=== PATIENT | male | born 1955 | race Caucasian/White ===

== ENCOUNTER → 2016-09-17 | Outpatient (CLI) | payer BC ==
[~2016-09-17] MED LIST: ALEVE220 M1 PO; ASPIRIN ENTERI325 M1 PO; CARVEDILOL12.5 MG PO; FENOFIBRATE160 MG PO; FISH OIL 1,2001 EAC2 PO; FLEXERIL10 MG PO; FUROSEMIDE40 MG PO; GLIMEPIRIDE2 MG PO; GLUCOSAMINE &1 EAC1 PO; GNP TRIPLE OME1 EACH PO; HCTZ PO; HYDROCODON-ACE1 EAC5 PO; LOTREL 5/20 MG1 CAP PO; METFORMIN HCL500 M1 PO; PRAVACHOL PO; VASCEPA1 GM PO; VITAMIN C1000 M1 PO; [UNRECOGNIZED DRUG - OTHER] PO
--- NOTE | ~2016-09-17 | CO ---
Unit #: [id number] #: [id number] Patient: CADEN ALEXANDER [id number] [address] [place], [place] [address] [id number] O MR#: [id number] NAME: CADEN ALEXANDER ROOM: Age: 60 Sex: M Admission Date: 09/17/2016 : 1955 Attending Physician: Rustam Franklin M.D. Primary Care Physician: Marco A Borrero M.D. Consultation Date: 09/17/2016 CONSULTATION REPORT REASON FOR CONSULTATION Preoperative medical evaluation prior to left total knee arthroplasty, scheduled by Dr. Franklin for September 29, 2016. HISTORY OF PRESENT ILLNESS The patient is a 60-year-old male, who presents to preprocedural screening for the reasons indicated above. He complains of left knee pain at the time of this interview. He denies upper chest, back, arm, neck, jaw pain or pressure. Denies shortness of air, dyspnea on exertion, PND, orthopnea. He does have sleep apnea and is compliant with CPAP. Denies lightheadedness, dizziness, presyncope, syncope. Denies palpitations. Denies history of myocardial infarction, congestive heart failure, CVA, TIA, insulin-dependent diabetes mellitus, and history of chronic kidney disease. He has been evaluated by Dr. Franklin and scheduled for the above referenced procedure. PAST MEDICAL HISTORY 1. Osteoarthritis. 2. Obstructive sleep apnea compliant with CPAP. 3. Morbid obesity, BMI 40. 4. ETOH use on a daily basis. He states he drinks one to two beers daily. 5. Type 2 diabetes mellitus, noninsulin dependent. 6. Hypertension. 7. Hyperlipidemia. 8. Left knee pain. 9. History of bilateral lower extremity edema. 10. History of pyorrhea without dental visit for more than one year. 11. Hard of hearing with bilateral hearing aide. PAST SURGICAL HISTORY 1. Right knee arthroscopy. 2. Patient denies a personal and family history of complications to anesthesia. SOCIAL HISTORY Denies tobacco use and illicit drug use. Consumes one to two beers daily. FAMILY HISTORY Per review of Dr. Franklin's office note: Hypertension, hyperlipidemia, stroke, and coronary artery disease. REVIEW OF SYSTEMS A 10-point review of systems is conducted and negative except as indicated Unit #: [id number] #: [id number] Patient: CADEN ALEXANDER under history of present illness above. ALLERGIES No known medication allergies. CURRENT MEDICATIONS 1. Lotrel 5/20 mg cap one p.o. b.i.d. 2. Pravachol 40 mg p.o. at bedtime. 3. Carvedilol 12.5 mg p.o. b.i.d. 4. Fenofibrate 160 mg p.o. at bedtime. 5. Glimepiride 2 mg p.o. daily. 6. Furosemide 40 mg p.o. daily. 7. Vascepa two tabs p.o. b.i.d. 8. Metformin HCl 500 mg p.o. b.i.d. 9. Fish oil 1200 mg soft gel one p.o. b.i.d. 10. Glucosamine chondroitin cap two p.o. b.i.d. PHYSICAL EXAMINATION GENERAL: A 60-year-old male, awake, alert. Ambulatory with limp, in no acute distress. VITAL SIGNS: Temperature 98.7, heart rate 71, respiratory rate 16, blood pressure 135/74, oxygen saturation 94% on room air. HEENT: Atraumatic, normocephalic. Sclerae anicteric. No discharge from eyes, ears, or nares. LUNGS: No preauricular, postauricular, tonsillar, submental, anterior, posterior, cervical, supra or infraclavicular adenopathy. ENDOCRINE: No thyromegaly, thyroid nodules or tenderness. RESPIRATORY: Clear to auscultation in all issa bilaterally without wheezes, rhonchi, or rales. CARDIOVASCULAR: S1, S2. Regular rate and rhythm without murmur or rub. GASTROINTESTINAL: Bowel sounds positive x4. Soft, nontender, nondistended. EXTREMITIES: No edema, cyanosis, or clubbing. Strength 5/5 all extremities bilaterally to flexion/extension. Nontender. No obvious muscle atrophy. NEUROLOGIC: Alert and oriented x3. Speech clear. Cranial nerves II-XII grossly intact. Follows directions for examination. DIAGNOSTIC STUDIES LABORATORY: WBC 6.6, hemoglobin 15.4, hematocrit 46.7, platelets 192,000. Hemoglobin A1c 7.4. Sodium 139, potassium 4.3, chloride 107, CO2 of 23, glucose 29, BUN 15, creatinine 0.9, calcium 9.4. AST 51, ALT 43, alkaline phosphatase 52, bilirubin total 0.4, total protein 7.4, albumin 4. PT 11.3, INR 1. Blood type O positive. Antibody screen negative. Urinalysis negative with neither microscopic nor culture indicated. MRSA nasal swab: Report pending at this time. IMAGING: Two view chest x-ray: Report pending at this time. CARDIOVASCULAR: A 12-lead EKG: Normal sinus rhythm. Minimal voltage criteria, maybe normal variant, borderline ECG. IMPRESSION The patient is a 60-year-old male who presents to preprocedural screening for: 1. Preoperative medical evaluation prior to left total knee arthroplasty. The patient's Ingram Revised Cardiac Risk Index is equal to 0.4%. This represents the patient's perioperative risk of Unit #: [id number] #: [id number] Patient: CADEN ALEXANDER fatal or nonfatal myocardial infarction, cardiopulmonary arrest, arrhythmia, and/or pulmonary edema. This has been discussed in detail with the patient and he wishes to proceed with surgery as scheduled at this time. 2. Obstructive sleep apnea: Compliant with CPAP. The patient will be placed on obstructive sleep apnea protocol postoperatively. He has also been advised to bring a CPAP from home for use postoperatively on home setting when asleep. 3. Morbid obesity: Body mass index 40. 4. ETOH use daily: Will monitor postoperatively for signs and symptoms of withdrawal. 5. Type 2 diabetes mellitus: Follow Accu-Cheks. CCD. Monitor resumption of oral intake postoperatively and resume home dose of glipizide once tolerating oral intake well. Will also add low-dose sliding scale insulin protocol. 6. Hypertension: Continue current medications and adjust accordingly. 7. Osteoarthritis. 8. Hyperlipidemia: At this point, plan is to continue current medications. 9. Left knee pain: Perioperative pain management per Dr. Franklin. 10. History of bilateral lower extremity edema: The patient has no edema today. Will monitor postoperatively. 11. History of pyorrhea: Patient has been advised he needs to obtain preoperative dental clearance. He is to call and schedule his own appointment and he has verbalized understanding of this information. Thank you for allowing us to participate in the care of this patient. Will gladly follow him for postop medical management pending preoperative dental clearance and order of Dr. Franklni. Dictated by... Odalys Hair A.P.R.N. for Regine Graff/daysi TD: 09/17/2016 13:47 JOB #: [id number] CONSULTATION REPORT Page 1 of 1 X Odalys Hair APRN X CONSULTATION REPORT
--- NOTE | ~2016-09-17 | CR63 ---
[facility] A Service of [facility] RADIOLOGY TEXT RESULTS PATIENT: CADEN ALEXANDER LOCATION: [facility] : 53 UNIT #: [id number] AGE: [address]: Rustam Franklin MD SEX: M ORDER DR: [id number] [facility] [address] [facility]. [place], [place] [address] [id number] O MR#: [id number] Acc #: [id number] NAME: CADEN ALEXANDER : 1955 SEX: M STUDY DATE/TIME: 09/17/2016 9:07 UNIT: [facility] ROOM: STUDY DESCRIPTION: CR Chest 2 View Attending Physician: Rustam Franklin M.D. Referring Physician: uRstam Franklin M.D. Ordering Physician: Rustam Franklin M.D. Primary Care Physician: Marco A Borrero M.D. MEDICAL IMAGING REPORT This report is preliminary unless electronic signature is present EXAM Chest, 09/17/2016, [facility]. HISTORY 60-year-old male patient; preop clearance total left knee replacement. Osteoarthritis left knee. History of diabetes, hypertension, and sleep apnea. COMPARISON Chest none. FINDINGS Two-view chest demonstrates cardiomegaly with left ventricular stress configuration. The vascular structures are preserved. Bilateral lungs are clear. Partial eventration, right hemidiaphragm. IMPRESSION Cardiomegaly with left ventricular stress configuration. No acute finding. No comparison study. Dictated by... Nick Spring M.D. THIS IS AN ELECTRONICALLY VERIFIED REPORT Nick Spring M.D. at 09/17/2016 1:56 PM KAREN/colt TD: 09/17/2016 13:44 JOB #: [id number] MEDICAL IMAGING REPORT [facility] A Service [facility] RADIOLOGY TEXT RESULTS PATIENT: CADEN ALEXANDER LOCATION: [facility] : 53 UNIT #: [id number] AGE: [address]: Rustam Franklin MD SEX: M ORDER DR: Page 1 of 1 COPY
--- NOTE | ~2016-09-17 | EKG ---
PATIENT: CADEN ALEXANDER UNIT #: [id number] Ventricular Rate: 62 BPM Atrial Rate: 62 BPM P-R Interval: 168 ms QRS Duration: 114 ms Q-T Interval: 432 ms QTC Calculation(Bezet): 438 ms P [place]: -5 degrees Calculated R [place]: 4 degrees Calculated T [place]: 6 degrees Diagnosis Line: Normal sinus rhythm Diagnosis Line: Minimal voltage criteria for LVH, may be normal Diagnosis Line: variant Diagnosis Line: Borderline ECG Diagnosis Line: No previous ECGs available Diagnosis Line: Confirmed by MAC RUBIN MD ([id number]) on Diagnosis Line: 09/17/2016 8:23:39 AM INTERPRETING MD: SCOTTIE BRAVO
[2016-09-17 08:45] LABS: HEMATOCRIT 46.7 % (38.0-50.0); HEMOGLOBIN 15.4 gm/dL (13.0-16.0); MEAN CELL VOLUME 88.2 FL (83-96); MEAN CORPUSCULAR HEMOGLOBIN 29.1 PG (28-34); MEAN PLATELET VOLUME 9.2 FL (6.5-11.5); RED BLOOD COUNT 5.29 X10e (3.90-5.60); RED CELL DISTRIBUTION WIDTH 13.7 % (11.0-15.5); WHITE BLOOD COUNT 6.6 X10e3 (4.0-10.5)
[2016-09-17 08:46] LABS: URINE APPEARANCE CLEAR; URINE BILIRUBIN NEG (NEG); URINE BLOOD NEG (NEG); URINE COLOR YELLOW; URINE GLUCOSE NEG (NEG); URINE KETONE NEG (NEG); URINE LEUKOCYTE ESTERASE NEG (NEG); URINE NITRATE NEG (NEG); URINE PROTEIN NEG (NEG); URINE SPECIFIC GRAVITY 1.008 (1.003-1.035); URINE UROBILINOGEN 0.2 MG/DL (NEG)
[2016-09-17 08:47] LABS: URINE SOURCE CLEAN CATCH
[2016-09-17 09:00] LABS: PROTHROMBIN TIME (PATIENT) 11.3 SECONDS (10.0-11.7)
[2016-09-17 09:07] LABS: BILIRUBIN,TOTAL 0.4 mg/dL (0.2-2.0); BUN/CREATININE RATIO 16.66; CALCIUM SERUM 9.4 mg/dL (8.4-10.2); CREATININE SERUM 0.9 mg/dL (0.6-1.4); GLOM FILT RATE Estimated 91.9 mL/min (>60); POTASSIUM 4.3 mmol/L (3.5-5.1); PROTEIN TOTAL SERUM 7.4 g/dL (6.0-8.3)
[2016-09-17 10:17] LABS: CULTURE INDICATED? NO
== END | disposition home or self-care (01) ==
LOC: CAMB 07:53 → EDSTATUS 08:00 → CAMB 08:00
PROVIDERS: Orthopaedic Surgery
DX: Z01.818 Encounter for other preprocedural examination (principal); M17.12 Unilateral primary osteoarthritis, left knee; I10 Essential (primary) hypertension; E11.9 Type 2 diabetes mellitus without complications; I51.7 Cardiomegaly
CPT/HCPCS: 36415; 71020; 80053; 81003; 83036; 85027; 85610; 86850; 86900; 86901; 87070; 93005

== ENCOUNTER 2016-09-29 06:11 | Inpatient (IN) | payer BC ==
[~2016-09-29] VITALS: Ht 176.5 cm; Wt 133.6 kg
--- NOTE | ~2016-09-29 | OR ---
Unit #: [id number] #: [id number] Patient: CADEN ALEXANDER [id number] [address] [place], [place] [address] [id number] I MR#: [id number] NAME: CADEN ALEXANDER ROOM: [facility] Date of Procedure: 09/29/2016 Admission Date: 09/29/2016 Surgeon: Rustam Franklin M.D. : 1955 Attending Physician: Rustam Franklin M.D. Primary Care Physician: Marco A Borrero M.D. OPERATIVE REPORT PREOPERATIVE DIAGNOSIS Primary localized osteoarthritis of the left knee. POSTOPERATIVE DIAGNOSIS Primary localized osteoarthritis of the left knee. PROCEDURE PERFORMED Left total knee. ASSISTANTS Norma and Matt. ANESTHESIA Adductor canal block plus general. ESTIMATED BLOOD LOSS 100 mL. INDICATIONS FOR PROCEDURE This is a 60-year-old with severe pain in the left knee. He has had pain for years. It has gotten progressively worse to the point now, where it limits his walking and standing. He comes to the hospital today for left total knee. He has failed injections and anti-inflammatories. DESCRIPTION OF PROCEDURE The patient was brought to the holding room, given 3 g of Ancef and an adductor canal block, brought back to the operating room and given a general anesthetic. Tourniquet placed around the left leg. Left leg was prepped and draped in a sterile fashion. Tourniquet inflated to 300. A straight anterior skin incision was made. The subcutaneous dissected away and a medial arthrotomy performed. Patella was slid to the side. Osteophytes were removed from the femur. An intramedullary guide was used and a 6-degree valgus cut was made on the distal femur. The femur was sized and found to be a size 5 for the DePuy PFC Sigma knee system. The anterior-posterior cutting block was applied. Rotation was checked in the knee. Anterior and posterior cuts were made along with the chamfer cuts. Proximal tibial cut was made using a 0-degree cutting block. It was sized and found to be a 4. After this was done, any posterior condylar osteophytes were removed. Any remaining meniscal fragments were debrided. The posterior capsule and periosteum were injected with a ropivacaine mixture. After this was done, the patient then had the trial femur applied. Drill holes were made for lugs on the femoral component. The Unit #: [id number] #: [id number] Patient: CADEN ALEXANDER trial tibia was applied first with an 8 insert. The knee was stable medially, but it was opened laterally indicating a tight medial collateral ligament, so using 1/2-inch curved osteotome, we released this subperiosteally and then we went to a 10 insert and the knee came to full extension. It was stable in extension and flexion. The patella was grasped with 2 towel clips after the external alignment guide showed appropriate alignment of the limb. The patella measured 40 mm thick, was cut smooth at 19 and a 41 patella was the appropriate size. The 3 drill holes were made. Trial patella applied and it tracked properly. We then removed all the trials and used the drill and punch for the tibial tray. The knee was irrigated and dried while the cement was mixed and then all 3 components were cemented simultaneously. Once again, it was a size 5 femur cruciate retaining, size 4 tibia, and a 41 patella from the DePuy PFC Sigma knee system. Any excess cement was removed and after the cement was hardened, it was judged that the 10 insert was the appropriate thickness, so this was opened and applied to the tibial tray. The tourniquet was released. Hemostasis was obtained. The wound was irrigated with a dilute Betadine solution and bacitracin and subsequently closed using 0 Ethibond in the arthrotomy, 0 and 2-0 Vicryl in the subcutaneous. The skin was closed with a Dermabond type dressing. Sterile dressing applied and the general anesthetic reversed. therapeutic recreation assistant, Adelfo Green, was present throughout the entire case. Dictated by... Regine Hardy/janae TD: 09/29/2016 14:44 JOB #: [id number] OPERATIVE REPORT Page 1 of 1 X Rustam Franklin MD PROCEDURE OPERATIVE NOTE
--- NOTE | ~2016-09-29 | BMI ---
[facility] Nutrition Therapy DATE: 09/30/16 Patient: CADEN ALEXANDER Physician: DAVID Address: [address] [facility] Room/Bed: [address] [place] [address], Zip: [place] [address] Admit Date: 09/29/16 Date of : [birth year] Height: 5 9.5 Weight: 294 133.6 HIGH BMI NOTE: DX: 60 Y.O. MALE ADMITTED FOR OSTEOARTHRITIS (L) KNEE ANTHROPOMETRICS: 5'9.5", WT: 294# (134 KG), BMI: 42.8 DIET: CC RECOMMENDATIONS: 1. RECOMMEND TO ADD HEART HEALTHY TO CURRENT DIET ORDER ABOVE TO PROMOTE GRADUAL WEIGHT LOSS TOWARDS HEALTHY BMI (19.0-25.0) OR +/-10%IBW RD WILL F/U PER PROTOCOL Respectfully, MARANDA DE LUNA MS, RD, LD Food and Nutritional Services [facility] cc: client file
--- NOTE | ~2016-09-29 | EKG ---
PATIENT: CADEN ALEXANDER UNIT #: [id number] Ventricular Rate: 53 BPM Atrial Rate: 53 BPM P-R Interval: 158 ms QRS Duration: 114 ms Q-T Interval: 458 ms QTC Calculation(Bezet): 429 ms P [place]: 0 degrees Calculated R Huson: 3 degrees Calculated T Huson: 9 degrees Diagnosis Line: Sinus bradycardia Diagnosis Line: Minimal voltage criteria for LVH, may be normal Diagnosis Line: variant Diagnosis Line: Abnormal ECG Diagnosis Line: When compared with ECG of 17-SEP-2016 08:06, Diagnosis Line: No significant change was found Diagnosis Line: Confirmed by BINA MAXWELL MD ([id number]) on Diagnosis Line: 09/30/2016 3:46:21 PM INTERPRETING MD: PAYAL
--- NOTE | ~2016-09-29 | CO ---
Unit #: [id number] #: [id number] Patient: CADEN ALEXANDER [id number] [address] [place], [place] [address] [id number] I MR#: [id number] NAME: CADEN ALEXANDER. ROOM: [facility] Age: 60 Sex: M Admission Date: 09/29/2016 : 1955 Attending Physician: Rustam Franklin M.D. Primary Care Physician: Marco A Borrero M.D. Consultation Date: 09/30/2016 CONSULTATION REPORT REASON FOR CONSULTATION Sinus bradycardia. HISTORY OF PRESENT ILLNESS The patient is a 60-year-old man who does not have a icd 9 coder. He denies ever having a history of a myocardial infarction, 2D echocardiogram, or cardiac catheterization. The patient reports that he has a past medical history of hypertension, hyperlipidemia, diabetes, osteoarthritis, obstructive sleep apnea with CPAP compliance, and alcohol use. The patient is a nonsmoker. Patient presented to [facility] for elective left total knee arthroplasty per Dr. Franklin on September 29, 2016. Patient tolerated the procedure. Postoperatively, patient was noted to be bradycardic with heart rates in the 40s and 50s. Reportedly, patient was asymptomatic. At this time, there is no lightheadedness, dizziness, presyncope, syncope, palpitations, chest pain, or shortness of air. Again, patient was postop from anesthesia. A dopamine drip was not started on the patient. Cardiology was consulted for sinus bradycardia. PAST MEDICAL HISTORY 1. Osteoarthritis, status post left total knee arthroplasty on September 29, 2016. 2. Hypertension. 3. Hyperlipidemia. 4. Diabetes. 5. Obstructive sleep apnea with CPAP compliance. 6. Alcohol use. 7. History of bilateral lower extremity edema. PAST SURGICAL HISTORY Right total knee arthroscopy. ALLERGIES No known allergies. HOME MEDICATIONS 1. Lotrel 5/20 one tab p.o. b.i.d. 2. Pravachol 40 mg p.o. at bedtime. 3. Carvedilol 12.5 mg p.o. b.i.d. 4. Fenofibrate 160 mg p.o. at bedtime. 5. Glimepiride 2 mg p.o. daily. 6. Lasix 40 mg p.o. daily. 7. Vascepa two tabs p.o. b.i.d. Unit #: [id number] #: [id number] Patient: CADEN ALEXANDER 8. Metformin 500 mg p.o. b.i.d. 9. Fish oil 1200 mg p.o. b.i.d. 10. Glucosamine one cap p.o. b.i.d. FAMILY HISTORY Patient endorses hypertension, hyperlipidemia, stroke, and coronary artery disease. SOCIAL HISTORY The patient denies tobacco and illicit drug use. He consumes one to two beers daily. REVIEW OF SYSTEMS A 10-point review of systems has been done and is considered otherwise negative unless indicated in the HPI. PHYSICAL EXAMINATION GENERAL: The patient is awake, alert in no acute distress. VITAL SIGNS: Temperature 99.2, heart rate 70, respirations 16, blood pressure 167/73. He is oxygenating 94%. HEENT: Head is atraumatic, normocephalic. Pupils equal, round, and reactive. Extraocular movements are intact. No drainage from ears or nares. NECK: Supple. Trachea is midline. Normal carotid upstrokes. CHEST: Lungs are clear to auscultation bilaterally. No wheezes, rales, or rhonchi. CARDIOVASCULAR: S1, S2. Regular rate and rhythm. No murmurs, rubs, or gallops appreciated. ABDOMEN: Soft, nontender, nondistended. Bowel sounds are positive in all four quadrants. SKIN: Appears to be warm, dry, intact without any unusual rashes or lesions. EXTREMITIES: No clubbing or cyanosis. The patient has edema in his left lower leg as well as the surgical incision. NEUROLOGIC: The patient is alert and oriented x4. He is pleasant and conversant. No focal deficits. DIAGNOSTIC STUDIES LABORATORY: Glucose 102, BUN 12, creatinine 0.7, sodium 135, potassium 3.9, chloride 106, CO2 of 24. Magnesium 1.7. White blood cells 9.3, hemoglobin 11.9, hematocrit 36.3, and platelets 267,000. ASSESSMENT 1. Asymptomatic bradycardia. 2. Hypertension. 3. Hyperlipidemia. 4. Diabetes. 5. Obstructive sleep apnea. 6. Status post left total knee arthroplasty on September 29, 2016. 7. Alcohol use. 8. Hard of hearing. 9. Nonsmoker. PLAN The patient had asymptomatic sinus bradycardia yesterday after surgery. There were no complaints of chest pain, shortness of air, palpitations, or dizziness. Dopamine was not started. Dr. Sanchez will see the patient and likely patient will be stable for discharge today. Unit #: [id number] #: [id number] Patient: CADEN ALEXANDER Dictated by... Mikayla Epps A.P.R.N. AM/daysi TD: 09/30/2016 10:04 JOB #: [id number] CONSULTATION REPORT Page 1 of 1 X Mikayla Epps APRN X CONSULTATION REPORT
--- NOTE | ~2016-09-29 | DS ---
Unit #: [id number] #: [id number] Patient: CADEN ALEXANDER [id number] [facility] [address]. [place], [place] [address] [id number] I MR#: [id number] NAME: CADEN ALEXANDER. ROOM: [facility] Age: 60 Sex: M Admission Date: 09/29/2016 : 1955 Discharge Date: 09/30/2016 Attending Physician: Rustam Franklin M.D. Primary Care Physician: Marco A Borrero M.D. DISCHARGE SUMMARY [facility]SULTED [facility] for medical management. REASON FOR ADMISSION Severe osteoarthritis, left knee. PROCEDURES Left total knee arthroplasty. HOSPITAL COURSE The patient was admitted to [facility] with a history of severe osteoarthritis of the left knee. The patient has undergone the above procedure. The patient tolerated the procedure well. There were no apparent complications. The patient is in stable condition today. His temperature is 99.2, blood pressure 167/73, heart rate 70 and regular, respirations 16. His incision is healing well. His neurovascular exam is intact. He has 2+ pulses in his lower extremities. The plan will be to send him home later today if safe with physical therapy. DISPOSITION Home with home health. DISCHARGE MEDICATIONS Per med/rec list. The patient will be on his regular home medications with the exception of [place] for pain control and aspirin 325 mg twice a day. DIAGNOSTIC STUDIES PERTINENT LABS: Hemoglobin is 11.9, WBC 9.3. FOLLOWUP INSTRUCTIONS The patient will be going home later today under the care of [facility]. He needs to take aspirin 325 mg twice a day. The patient will wear TEDS during the day and off at night. The patient should not drive until seen by Dr. Franklin 11/11/2016. The patient will participate in physical therapy, evaluate and treat for home safety, (1) home exercise program, dislocation precautions and progressive ambulation - start with a walker and progress to a cane as tolerated. Dictated by.Saida Green P.A.-C- for Rustam Franklin M.D. Unit #: [id number] #: [id number] Patient: CADEN ALEXANDER/dora TD: 09/30/2016 09:00 JOB #: [id number] DISCHARGE SUMMARY Page 1 of 1 X X DISCHARGE SUMMARY
[~2016-09-29 06:11] MED LIST changes: -ASPIRIN ENTERI325 M1 PO; -HYDROCODON-ACE1 EAC5 PO
[2016-09-29 07:02] LABS: INR 1.1; PROTHROMBIN TIME (PATIENT) 11.4 SECONDS (10.0-11.7)
[2016-09-30 02:14] LABS: HEMATOCRIT 36.3 % (38.0-50.0); HEMOGLOBIN 11.9 gm/dL (13.0-16.0); MEAN CELL VOLUME 89.5 FL (83-96); MEAN CORPUSCULAR HEMOGLOBIN 29.4 PG (28-34); MEAN CORPUSCULAR HGB CONC 32.9 g/dL (30-36); MEAN PLATELET VOLUME 8.8 FL (6.5-11.5); RED BLOOD COUNT 4.05 X10e (3.90-5.60); RED CELL DISTRIBUTION WIDTH 13.5 % (11.0-15.5); WHITE BLOOD COUNT 9.3 X10e3 (4.0-10.5)
[2016-09-30 02:38] LABS: BUN/CREATININE RATIO 17.14; CALCIUM SERUM 8.1 mg/dL (8.4-10.2); CREATININE SERUM 0.7 mg/dL (0.6-1.4); GLOM FILT RATE Estimated 101.9 mL/min (>60); MAGNESIUM 1.7 mg/dL (1.6-3.0); POTASSIUM 3.9 mmol/L (3.5-5.1)
[2016-09-30] MEDS ORDERED: ASPIRIN ENTERI325 M1 PO (15:20)
[2016-09-30] MEDS ORDERED: HYDROCODON-ACE1 EAC5 PO (15:21)
== END 2016-09-30 16:32 | disposition home health service (06) | DRG 470 ==
LOC: CSUR 06:11 → CPACUOF 07:30 → CSUR 08:30 → CPACUOF 08:49 → CSUR 08:49 → CPACUOF 11:05 → C4B 11:05
PROVIDERS: Nurse Practitioner; Orthopaedic Surgery
PROC: 0SRD0J9 Replacement of Left Knee Joint with Synthetic Substitute, Cemented, Open Approach (ICD-10-PCS; principal; 2016-09-29 08:30)
DX: M17.12 Unilateral primary osteoarthritis, left knee (principal); Z68.41 Body mass index [BMI] 40.0-44.9, adult; I10 Essential (primary) hypertension; E11.9 Type 2 diabetes mellitus without complications; E78.5 Hyperlipidemia, unspecified; Z87.891 Personal history of nicotine dependence; G47.33 Obstructive sleep apnea (adult) (pediatric); Z79.84 Long term (current) use of oral hypoglycemic drugs; R00.1 Bradycardia, unspecified; E66.01 Morbid (severe) obesity due to excess calories; Z72.89 Other problems related to lifestyle
CPT/HCPCS: 80048; 82947; 83735; 84443; 85027; 85610; 93005; 94010; 94760; 94761; 97110; 97116; 97161; 97165; 97530; 97535; C1713; C1776; G8978-GP; G8979-GP; G8980-GP; G8987-GO; G8988-GO; G8989-GO; J0131; J0171; J0690; J0735; J1100; J1815; J1885; J2250; J2405; J2795; J3010